=== PATIENT | female | born 1990 | race Caucasian/White ===

== ENCOUNTER 2021-05-14 12:36 | Day surgery (SDC) | payer OTHER ==
[~2021-05-14] VITALS: Ht 160 cm; Wt 58.0 kg
[2021-05-14 13:31] LABS: HEMATOCRIT 42.7 % (36.0-47.0); HEMOGLOBIN 14.6 g/dl (12.0-15.5); MEAN CORPUSCULAR HEMOGLOBIN 33.3 pg (27.0-33.0); MEAN CORPUSCULAR HGB CONC 34.2 g/dl (32.0-36.5); MEAN CORPUSCULAR VOLUME 97.3 fl (80.0-96.0); PLATELET COUNT, AUTOMATED 229 10^3/uL (150-450); RED BLOOD COUNT 4.39 10^6/uL (4.00-5.40)
[2021-05-14] MEDS ORDERED: PROBCAP14 PO (13:34)
[2021-05-14] MEDS ORDERED: VITATAB74 PO (13:34)
[2021-05-14] MEDS ORDERED: FISH1000 PO (13:34)
[2021-05-14] MEDS ORDERED: ACYC1CAP20 PO (13:34)
[2021-05-14] MEDS ORDERED: B-12100021 PO (13:34)
[2021-05-14] MEDS ORDERED: BLAC1CAP2 PO (13:34)
[2021-05-14 14:14] LABS: BLOOD UREA NITROGEN 10 MG/DL (7-18); CALCIUM LEVEL 9.2 MG/DL (8.5-10.1); CARBON DIOXIDE LEVEL 26 MEQ/L (21-32); CHLORIDE LEVEL 108 MEQ/L (98-107); CREATININE FOR GFR 0.59 MG/DL (0.55-1.30); GLOMERULAR FILTRATION RATE > 60.0 (>60); GLUCOSE, FASTING 82 MG/DL (70-100); HCG, SERUM QUANTITATIVE 65010 MIU/ML; POTASSIUM SERUM 3.9 MEQ/L (3.5-5.1); SODIUM LEVEL 139 MEQ/L (136-145)
[2021-05-14] MEDS ORDERED: ACETAMINOPHEN 650 MG SUPP As Ordered ONE (15:09)
[2021-05-14] MEDS ORDERED: propofoL 200 MG/20 ML VIAL As Ordered ONE (15:17)
[2021-05-14] MEDS ORDERED: dexameTHASONE 4 MG/ML 1ML VIAL (J1100 PER 1MG) As Ordered ONE (15:17)
[2021-05-14] MEDS ORDERED: fentaNYL 100 MCG/2 ML INJECTION (J3010) As Ordered ONE (15:17)
[2021-05-14] MEDS ORDERED: ONDANSETRON 4MG/2ML VIAL As Ordered ONE (15:17)
[2021-05-14] MEDS ORDERED: LIDOCAINE 2% 100MG/5ML SDV (FOR ANES.) As Ordered ONE (15:17)
[2021-05-14] MEDS ORDERED: MIDAZOLAM INJ 2MG/2ML VIAL (J2250 PER 1MG) As Ordered ONE (15:17)
[2021-05-14] MEDS ORDERED: OXYTOCIN INJ 10 UNITS/ML VIAL (J2590) As Ordered ONE (15:27)
[2021-05-14] MEDS ORDERED: KETOROLAC 60MG 2ML VIAL As Ordered ONE (15:31)
[2021-05-14] MEDS ORDERED: KETOROLAC 30 MG/ML 1ML VIAL IV PRN (15:40)
[2021-05-14] MEDS ORDERED: fentaNYL 100 MCG/2 ML INJECTION (J3010) IV PRN (16:05)
[2021-05-14] MEDS ORDERED: ONDANSETRON 4MG/2ML VIAL IV PRN (16:05)
[2021-05-14] MEDS ORDERED: METOCLOPRAMIDE INJ 10MG/2ML VIAL (J2765 PER 1) IV PRN (16:05)
[2021-05-14] MEDS ORDERED: LR 1,000 ML IV SCH (16:05)
[2021-05-14] MEDS ORDERED: PERCOCET 5MG/325MG TAB PO PRN (16:05)
[2021-05-14 17:00] VITALS: BP 120/76
[2021-05-15] MEDS ORDERED: ACETAMINOPHEN 650 MG SUPP PR ONE (06:00)
[2021-05-15] MEDS ORDERED: NS 1,000 ML IV ONE (06:00)
--- NOTE | 2021-05-15 07:50 | RO ---
OPERATIVE NOTE DATE OF OPERATION: 05/14/2021 PREOPERATIVE DIAGNOSIS: Missed . POSTOPERATIVE DIAGNOSIS: Missed . OPERATION PROPOSED: Suction curettage. OPERATION PERFORMED: Suction curettage. SURGEON: Jonathon Castaneda MD CAR REFINISHER: ANESTHESIA: General. ESTIMATED BLOOD LOSS: Less than 25 mL. DESCRIPTION OF PROCEDURE: After adequate time out, prepped and draped in lithotomy position, bladder drained for 50 mL of clear urine. Weighted speculum in vagina, single tooth tenaculum on the anterior lip of the cervix. Uterus sounded up to 9 cm, retroverted, retroflexed, dilated to Sol[place] 18. Curved #8 was applied; curettage to the cavity was smooth. Uterus replaced in anatomical position. Well contracted under Pitocin. The patient is Rh positive, does not require RhoGAM. Sent to recovery in good condition. cc: Rita Hull OB
== END 2021-05-14 17:00 | disposition home or self-care (01) ==
LOC: M SDC 12:36
PROVIDERS: ATTEND Obstetrics & Gynecology
DX: O02.1 Missed abortion (principal); Z88.2 Allergy status to sulfonamides
CPT/HCPCS: 36415; 59820; 76801; 76817; 80048; 84702; 85027; 88305; 93976; J1100; J1885; J2250; J2405; J2590; J3010; U0002

== ENCOUNTER → 2021-05-14 | Outpatient (CLI) | payer OTHER ==
[~2021-05-14] MED LIST: ACYC1CAP20 PO; B-12100021 PO; BLAC1CAP2 PO; FISH1000 PO; PROBCAP14 PO; VITATAB74 PO
--- NOTE | 2021-05-14 10:03 | REP ---
INDICATION: PREG 9 WKS ? DATING VS VIABILITY; RI OF OVARIES; EVAL FOR IUP. COMPARISON: None. TECHNIQUE: Transabdominal and transvaginal scanning. First trimester obstetric sonography. FINDINGS: Scanning through the urine filled bladder and uterus demonstrate a intrauterine gestational sac. There is a 4.6 mm embryonic pole within the sac along with the yolk sac. By crown-rump length of 4.6 mm this would correspond with a 6 week 1 day gestational age estimate. However, there is no evidence of motion or cardiac motion. Some echogenic debris is seen within the sac. Patient is 9 weeks by LMP and I suspect intrauterine demise. Uterine dimensions are 11.0 x 4.6 x 5.7 cm. Right ovarian dimensions are 4.2 x 2.2 x 3.1 cm. There is a septated cyst in the right ovary measuring 2.6 cm in greatest diameter. Doppler flow in the right ovary is normal, resistive index 0.57. The left ovary measures 2.1 x 1.5 x 1.9 cm. It is morphologically normal. Doppler flow is present, resistive index 0.54. IMPRESSION: Findings suspicious for intrauterine demise at 6 weeks 1 day by crown-rump length. Clinical and possibly sonographic follow-up advised. <Electronically signed by Brandon Velasquez > 05/14/21 [id number]
== END ==
LOC: M RAD 08:52
PROVIDERS: ATTEND Nurse Practitioner Women's Health
DX: Z34.81 Encounter for supervision of other normal pregnancy, first trimester (principal)

== ENCOUNTER 2022-03-07 22:22 | Emergency (ER) | payer OTHER ==
[~2022-03-07] VITALS: Ht 160 cm; Wt 66.8 kg
[2022-03-07 22:23] VITALS: BP 119/55
[2022-03-07] MEDS ORDERED: VALA500T5 (22:32)
[2022-03-08] MEDS ORDERED: LIDOCAINE 4% CREAM 5GM (LMX4) TOP ONE (01:25)
[2022-03-08] MEDS ORDERED: LIDO1CRE2 TOP (01:27)
== END 2022-03-08 02:09 | disposition home or self-care (01) ==
LOC: M ED 22:22
DX: O99.891 Other specified diseases and conditions complicating pregnancy (principal); L02.31 Cutaneous abscess of buttock; Z88.2 Allergy status to sulfonamides; Z3A.28 28 weeks gestation of pregnancy; Z79.899 Other long term (current) drug therapy

== ENCOUNTER 2022-03-31 09:11 | Outpatient (CLI) | payer OTHER ==
[~2022-03-31 09:11] MED LIST changes: +LIDO1CRE2 TOP; +VALA500T5
[2022-03-31] MEDS ORDERED: ACET325C5 PO (09:32)
[2022-03-31] MEDS ORDERED: PRENTAB9 PO (09:32)
[2022-03-31] MEDS ORDERED: LR 1,000 ML IV SCH (09:35)
[2022-03-31] MEDS ORDERED: LR 1,000 ML IV ONE (09:35)
[2022-03-31] MEDS ORDERED: HOME MED LIST COMPLETE! XX SCH (09:45)
[2022-03-31 09:46] VITALS: BP 112/67
[2022-03-31 10:43] LABS: BASO % 0.1 % (0.0-1.0); HEMATOCRIT 36.9 % (36.0-47.0); HEMOGLOBIN 12.5 g/dl (12.0-15.5); LYMPH # 0.8 10^3/uL (1.5-5.0); LYMPH % 5.1 % (24.0-44.0); MEAN CORPUSCULAR HGB CONC 33.9 g/dl (32.0-36.5); MEAN CORPUSCULAR VOLUME 97.4 fl (80.0-96.0); MONO % 10.7 % (2.0-8.0); NEUTROPHILS # 13.2 10^3/uL (1.5-8.5); NEUTROPHILS % 83.5 % (36.0-66.0); PLATELET COUNT, AUTOMATED 119 10^3/uL (150-450); RED BLOOD COUNT 3.79 10^6/uL (4.00-5.40); WHITE BLOOD COUNT 15.8 10^3/uL (4.0-10.0)
[2022-03-31 11:10] LABS: ALBUMIN 2.4 GM/DL (3.2-5.2); ALT/SGPT 21 U/L (12-78); BILIRUBIN,TOTAL 0.4 MG/DL (0.2-1.0); BLOOD UREA NITROGEN 6 MG/DL (7-18); CALCIUM LEVEL 8.1 MG/DL (8.5-10.1); CARBON DIOXIDE LEVEL 25 MEQ/L (21-32); CHLORIDE LEVEL 109 MEQ/L (98-107); CREATININE FOR GFR 0.61 MG/DL (0.55-1.30); GLOMERULAR FILTRATION RATE > 60.0 (>60); GLUCOSE, FASTING 104 MG/DL (70-100); SODIUM LEVEL 139 MEQ/L (136-145)
[2022-03-31 11:11] LABS: MONO # 1.7 10^3/uL (0.0-0.8)
[2022-03-31] MEDS ORDERED: cefTRIAXone SOD 2 GM in D5W MINI-BAG PLUS 50 ML IV ONE (12:00)
[2022-03-31 12:12] VITALS: BP 104/51
[2022-03-31] MEDS ORDERED: ACETAMINOPHEN 500 MG TAB PO ONE (12:20)
== END 2022-03-31 12:35 | disposition home or self-care (01) ==
LOC: M LDO 09:11
PROVIDERS: ATTEND Obstetrics & Gynecology
DX: O23.43 Unspecified infection of urinary tract in pregnancy, third trimester (principal); N39.0 Urinary tract infection, site not specified; Z3A.32 32 weeks gestation of pregnancy; O36.8130 Decreased fetal movements, third trimester, not applicable or unspecified; Z88.2 Allergy status to sulfonamides
CPT/HCPCS: 36415; 59025; 80053; 81001; 85025; 87088; 87186; 87486; 87581; 87633; 87798; 96361; 96365; G0378; G0463; J0696